=== PATIENT | female | born 1965 | race Caucasian/White ===

== ENCOUNTER 2017-04-10 13:20 | Emergency (ER) | payer OTHER ==
[~2017-04-10] VITALS: Ht 165.1 cm; Wt 70.4 kg
[~2017-04-10 13:20] MED LIST: ANTIVERT25 MG PO; BACTRIM,SEPT1 TABLET PO; BENADRYL25 MG PO; CIPRO500 MG PO; CLARITIN10 MG PO; DIFLUCAN150 MG PO; DOXYCYCLINE HY100 MG PO; FIORICET 50-301 EACH PO; FLAGYL500 MG PO; FLEXERIL10 MG PO; HYDROCODONE CO120 ML PO; KEFLEX500 MG PO; KENALOG,ARISTOC80 GM TP; MACROBID100 MG PO; MECLIZINE HCL25 MG PO; METOPROLOL; MOTRIN800 MG PO; NAPROSYN500 MG PO; NEXIUM40 MG PO; NITROFURANTOIN50 MG PO; NO HOME MEDS; NOHOMEMEDS; NORCO 5/3251 TABLET PO; OXYCODONE H5 MG/5 ML PO; PREDNISONE10 MG PO; PREDNISONE20 MG PO; PROMETHAZINE HC25 M1 PO; PYRIDIUM100 MG PO; PYRIDIUM200 MG PO; TORADOL10 MG PO; TRAMADOL HCL50 MG; TYLENOL WITH C1 EACH PO; ULTRAM50 MG PO; VALIUM5 MG PO; ZITHROMAX250 MG PO; ZOFRAN4 MG PO
[2017-04-10 14:35] LABS: BASOPHIL COUNT 0.1 K/uL (0-0.1); EOSINOPHIL (%) 2.6 % (0-5); EOSINOPHIL COUNT 0.2 K/uL (0-0.3); HEMATOCRIT 38.3 % (36.0-46.0); IMMATURE GRANULOCYTE (%) 0.3 % (0.0-0.7); INSTRUMENT ABS NEUTROPHIL CT 3.5 K/uL; LYMPHOCYTE COUNT 2.1 K/uL (1.0-2.8); MCH 29.5 PG (29.0-34.0); MCHC 33.4 G/DL (30.0-36.0); MCV 88.2 FL (83-99); MEAN PLAT.VOLUME 9.9 uM^3 (9.5-12.4); MONOCYTE (%) 5.8 % (3-12); MONOCYTE COUNT 0.4 K/uL (0-0.8); NEUTROPHIL COUNT 3.5 K/uL (1.8-6.4); PLATELET COUNT 238 K/uL (156-360); RBC DIS.WIDTH-CV 12.9 % (11.8-14.6); RBC DIS.WIDTH-SD 41.7 % (39-53); RED BLOOD COUNT 4.34 M/uL (3.80-5.20); WHITE BLOOD COUNT 6.2 K/uL (4.1-10.2)
[2017-04-10 14:41] LABS: PROTHROMBIN TIME 11.2 SEC (10.2-12.9)
[2017-04-10 14:43] LABS: PTT 22.1 SEC (25-37)
[2017-04-10 14:47] LABS: CHLORIDE 109 mEq/L (99-109); POTASSIUM 3.6 mEq/L (3.7-5.4); SODIUM 144 mEq/L (136-147)
[2017-04-10 14:49] LABS: GLUCOSE 95 mg/dL (70-99)
[2017-04-10 14:50] LABS: ANION GAP 10 MEQ/L (2-14)
[2017-04-10 14:53] LABS: GFR ESTIMATE (CALCULATED) > 59 mL/min/
[2017-04-10 14:54] LABS: UREA NITROGEN (BUN) 8 mg/dL (9-23)
[2017-04-10 16:59] LABS: TROP-I INTERPRETATION NEGATIVE; TROPONIN-I < 0.01 ng/mL (0.0-0.30)
[2017-04-10 18:04] LABS: TROP-I INTERPRETATION NEGATIVE; TROPONIN-I < 0.01 ng/mL (0.0-0.30)
[2017-04-10] MEDS ORDERED: NORCO 5/3251 TABLET PO (18:10)
[2017-04-10 18:29] VITALS: BP 129/75
== END 2017-04-10 18:30 | disposition home or self-care (01) ==
LOC: RME 13:20 → EME 13:20 → RME 18:30
PROVIDERS: Physician Assistant Medical; Thoracic Surgery (Cardiothoracic Vascular Surgery)
PROC: 2W3CX1Z Immobilization of Right Lower Arm using Splint (ICD-10-PCS; principal; 2017-04-10)
DX: S52.601A Unspecified fracture of lower end of right ulna, initial encounter for closed fracture (principal); R55 Syncope and collapse; W18.30XA Fall on same level, unspecified, initial encounter; K21.9 Gastro-esophageal reflux disease without esophagitis; Z87.442 Personal history of urinary calculi
CPT/HCPCS: 71020; 73030; 73080; 73110; 80048; 80048 91; 84484; 85025; 85027; 85049; 85610; 85730; 93005; 99281; 99284; J2270; J3010

== ENCOUNTER 2017-06-18 14:21 | Emergency (ER) | payer OTHER ==
[~2017-06-18] VITALS: Ht 165.1 cm; Wt 72.4 kg
[2017-06-18 15:04] LABS: ADD MIUA? YES; BILIRUBIN NEGATIVE; BLOOD NEGATIVE; COLOR YELLOW ((YELLOW)); GLUCOSE (STRIP) NEGATIVE; KETONES NEGATIVE; LEUKOCYTES SMALL; NITRITE NEGATIVE; PROTEIN (STRIP) NEGATIVE; SPECIFIC GRAVITY 1.028 (1.000-1.030); UROBILINOGEN 0.2 MG/DL (0.2-1.0)
[2017-06-18 15:08] LABS: BACTERIA RARE /HPF; EPITHELIAL CELLS RARE /HPF; HYALINE CASTS 0-5 /LPF; MUCUS 2+ /LPF; RED BLOOD CELLS 0-5 /HPF (0-5); UCUL ADDED? YES
[2017-06-18] MEDS ORDERED: OMNICEF300 MG PO (17:16)
[2017-06-18] MEDS ORDERED: PYRIDIUM200 MG PO (17:16)
[2017-06-18] MEDS ORDERED: MOTRIN600 MG PO (17:16)
[2017-06-18 17:28] VITALS: BP 128/82
[2017-06-21] MEDS ORDERED: NEXIUM40 MG PO (16:40)
== END 2017-06-18 17:28 | disposition home or self-care (01) ==
LOC: EME 14:21
DX: N30.00 Acute cystitis without hematuria (principal); Z87.440 Personal history of urinary (tract) infections; Z87.442 Personal history of urinary calculi; K21.9 Gastro-esophageal reflux disease without esophagitis
CPT/HCPCS: 81003; 87077; 87086; 87186; 99281; 99284

== ENCOUNTER 2017-06-20 14:45 | Emergency (ER) | payer OTHER ==
[~2017-06-20] VITALS: Ht 165.1 cm; Wt 72.9 kg
[~2017-06-20 14:45] MED LIST changes: +MOTRIN600 MG PO; +OMNICEF300 MG PO
[2017-06-20 15:17] LABS: HEMATOCRIT 39.5 % (36.0-46.0); MCH 29.5 PG (29.0-34.0); MCHC 33.4 G/DL (30.0-36.0); MCV 88.2 FL (83-99); MEAN PLAT.VOLUME 9.1 uM^3 (9.5-12.4); PLATELET COUNT 278 K/uL (156-360); RBC DIS.WIDTH-CV 12.7 % (11.8-14.6); RBC DIS.WIDTH-SD 41.1 % (39-53); RED BLOOD COUNT 4.48 M/uL (3.80-5.20); WHITE BLOOD COUNT 5.8 K/uL (4.1-10.2)
[2017-06-20 15:26] LABS: ADD MIUA? YES; BILIRUBIN NEGATIVE; BLOOD SMALL; COLOR YELLOW ((YELLOW)); GLUCOSE (STRIP) NEGATIVE; KETONES NEGATIVE; LEUKOCYTES TRACE; NITRITE NEGATIVE; PROTEIN (STRIP) NEGATIVE; SPECIFIC GRAVITY 1.023 (1.000-1.030); UROBILINOGEN 0.2 MG/DL (0.2-1.0)
[2017-06-20 15:29] LABS: CHLORIDE 110 mEq/L (99-109); POTASSIUM 3.8 mEq/L (3.7-5.4); SODIUM 142 mEq/L (136-147)
[2017-06-20 15:31] LABS: GLUCOSE 101 mg/dL (70-99)
[2017-06-20 15:33] LABS: ANION GAP 7 MEQ/L (2-14); TOTAL BILIRUBIN 0.5 mg/dL (0.0-1.0)
[2017-06-20 15:35] LABS: ALKALINE PHOSPHATASE 107 IU/L (3-129); GFR ESTIMATE (CALCULATED) 55 mL/min/
[2017-06-20 15:36] LABS: UREA NITROGEN (BUN) 12 mg/dL (9-23)
[2017-06-20 15:41] LABS: BACTERIA NONE SEEN /HPF; EPITHELIAL CELLS RARE /HPF; HYALINE CASTS 0-5 /LPF; MUCUS TRACE /LPF; RED BLOOD CELLS 0-5 /HPF (0-5); UCUL ADDED? NO; WHITE BLOOD CELLS 0-5 /HPF (0-5)
[2017-06-20 17:54] VITALS: BP 124/86
[2017-06-21] MEDS ORDERED: NEXIUM40 MG PO (16:40)
== END 2017-06-20 17:57 | disposition home or self-care (01) ==
LOC: EME 14:45
PROVIDERS: Nurse Practitioner Family
DX: N39.0 Urinary tract infection, site not specified (principal); Z87.442 Personal history of urinary calculi; Z87.440 Personal history of urinary (tract) infections
CPT/HCPCS: 80053; 81003; 85027; 99281; 99284; J1335; J2405; J7030; J7050

== ENCOUNTER 2017-08-08 12:21 | Inpatient (IN) | payer OTHER ==
[~2017-08-08] VITALS: Ht 165.1 cm; Wt 73.5 kg
[2017-08-08 14:27] LABS: HEMATOCRIT 38.8 % (36.0-46.0); MCH 30.3 PG (29.0-34.0); MEAN PLAT.VOLUME 9.2 uM^3 (9.5-12.4); PLATELET COUNT 268 K/uL (156-360); RBC DIS.WIDTH-CV 12.6 % (11.8-14.6); RBC DIS.WIDTH-SD 41.5 % (39-53); RED BLOOD COUNT 4.36 M/uL (3.80-5.20); WHITE BLOOD COUNT 6.5 K/uL (4.1-10.2)
[2017-08-08 14:35] LABS: CHLORIDE 110 mEq/L (99-109); POTASSIUM 3.2 mEq/L (3.7-5.4); SODIUM 143 mEq/L (136-147)
[2017-08-08 14:37] LABS: GLUCOSE 100 mg/dL (70-99)
[2017-08-08 14:38] LABS: ANION GAP 8 MEQ/L (2-14)
[2017-08-08 14:39] LABS: ADD MIUA? YES; BILIRUBIN NEGATIVE; BLOOD SMALL; COLOR YELLOW ((YELLOW)); GLUCOSE (STRIP) NEGATIVE; KETONES NEGATIVE; LEUKOCYTES NEGATIVE; NITRITE NEGATIVE; PROTEIN (STRIP) 30; SPECIFIC GRAVITY 1.027 (1.000-1.030); UROBILINOGEN 0.2 MG/DL (0.2-1.0)
[2017-08-08 14:40] LABS: GFR ESTIMATE (CALCULATED) > 59 mL/min/
[2017-08-08 14:41] LABS: UREA NITROGEN (BUN) 9 mg/dL (9-23)
[2017-08-08 14:45] LABS: BACTERIA NONE SEEN /HPF; EPITHELIAL CELLS RARE /HPF; MUCUS 3+ /LPF; WHITE BLOOD CELLS 0-5 /HPF (0-5)
[2017-08-08 14:47] LABS: TROP-I INTERPRETATION NEGATIVE; TROPONIN-I < 0.01 ng/mL (0.0-0.30)
[2017-08-08] MEDS ORDERED: POTASSIUM CHLO10 ME4 PO (17:27)
[2017-08-08 20:23] VITALS: BP 98/55
[2017-08-08 22:37] LABS: TROP-I INTERPRETATION NEGATIVE; TROPONIN-I < 0.01 ng/mL (0.0-0.30)
[2017-08-08 23:05] VITALS: BP 82/52
[2017-08-09] VITALS (8 sets, daily range): BP systolic 94–126; BP diastolic 54–71
[2017-08-09 05:41] LABS: HEMATOCRIT 33.5 % (36.0-46.0); MCH 29.9 PG (29.0-34.0); MCHC 32.5 G/DL (30.0-36.0); MEAN PLAT.VOLUME 9.6 uM^3 (9.5-12.4); PLATELET COUNT 205 K/uL (156-360); RBC DIS.WIDTH-CV 12.9 % (11.8-14.6); RBC DIS.WIDTH-SD 43.5 % (39-53); RED BLOOD COUNT 3.64 M/uL (3.80-5.20); WHITE BLOOD COUNT 4.5 K/uL (4.1-10.2)
[2017-08-09 05:48] LABS: TROP-I INTERPRETATION NEGATIVE; TROPONIN-I < 0.01 ng/mL (0.0-0.30)
[2017-08-09 06:05] LABS: ALKALINE PHOSPHATASE 64 IU/L (3-129); ANION GAP 4 MEQ/L (2-14); CHLORIDE 117 MEQ/L (99-109); GFR ESTIMATE (CALCULATED) > 59 mL/min/; GLUCOSE 98 mg/dL (70-99); SAMPLE HEMOLYSIS CHECK 0; SAMPLE ICTERIC CHECK 0; SAMPLE LIPEMIA CHECK 0; SODIUM 145 MEQ/L (136-147); TOTAL BILIRUBIN 0.4 MG/DL (0.0-1.0); UREA NITROGEN (BUN) 8 mg/dL (9-23)
[2017-08-09 06:18] LABS: POTASSIUM 4.8 MEQ/L (3.7-5.4)
[2017-08-10 09:50] VITALS: BP 112/61
[2017-08-10 12:12] VITALS: BP 104/60
[2017-08-10] MEDS ORDERED: ASPIR-LOW81 MG PO (14:05)
== END 2017-08-10 15:25 | disposition home or self-care (01) | DRG 313 ==
LOC: EME 12:21 → EDOF 18:15 → ENRESERV 18:16 → 5WEST 20:12 → ENPENDDIS 08-10 → 5WEST 08-10 06:50
PROVIDERS: Internal Medicine; Physician Assistant
DX: R07.89 Other chest pain (principal); R55 Syncope and collapse; I95.9 Hypotension, unspecified; R94.31 Abnormal electrocardiogram [ECG] [EKG]; R26.81 Unsteadiness on feet; E87.6 Hypokalemia; K21.9 Gastro-esophageal reflux disease without esophagitis; R42 Dizziness and giddiness; S60.512A Abrasion of left hand, initial encounter; W18.30XA Fall on same level, unspecified, initial encounter; R20.0 Anesthesia of skin; E78.5 Hyperlipidemia, unspecified; E03.9 Hypothyroidism, unspecified; Z87.442 Personal history of urinary calculi; Z82.49 Family history of ischemic heart disease and other diseases of the circulatory system; R29.6 Repeated falls; Z66 Do not resuscitate; R00.1 Bradycardia, unspecified; R51 Headache
CPT/HCPCS: 70450; 70551; 71020; 72156; 73130; 80048; 80053; 81003; 83735; 84484; 85027; 93005; 93880; 99281; 99285; G0378; J2405; J7030

== ENCOUNTER 2017-09-17 19:14 | Emergency (ER) | payer OTHER ==
[~2017-09-17] VITALS: Ht 165.1 cm; Wt 75.1 kg
[~2017-09-17 19:14] MED LIST changes: +ASPIR-LOW81 MG PO; +POTASSIUM CHLO10 ME4 PO
[2017-09-17 19:58] LABS: HEMATOCRIT 39.2 % (36.0-46.0); HEMOGLOBIN 13.2 G/DL (11.9-15.5); MCH 30.1 PG (29.0-34.0); MCHC 33.7 G/DL (30.0-36.0); MCV 89.3 FL (83-99); PLATELET COUNT 279 K/uL (156-360); RBC DIS.WIDTH-CV 12.7 % (11.8-14.6); RBC DIS.WIDTH-SD 41.4 % (39-53); RED BLOOD COUNT 4.39 M/uL (3.80-5.20); WHITE BLOOD COUNT 5.7 K/uL (4.1-10.2)
[2017-09-17 20:06] LABS: APPEARANCE CLEAR ((CLEAR)); BILIRUBIN NEGATIVE; BLOOD MODERATE; COLOR YELLOW ((YELLOW)); GLUCOSE (STRIP) NEGATIVE; KETONES 5; LEUKOCYTES SMALL; NITRITE POSITIVE; PROTEIN (STRIP) NEGATIVE; SPECIFIC GRAVITY 1.033 (1.000-1.030); UROBILINOGEN 0.2 MG/DL (0.2-1.0)
[2017-09-17 20:13] LABS: ALBUMIN 3.8 g/dL (3.2-4.8); CHLORIDE 108 mEq/L (99-109); SODIUM 141 mEq/L (136-147)
[2017-09-17 20:15] LABS: GLUCOSE 114 mg/dL (70-99); TOTAL PROTEIN 6.9 g/dL (6.4-8.3)
[2017-09-17 20:17] LABS: TOTAL BILIRUBIN 0.2 mg/dL (0.0-1.0)
[2017-09-17 20:19] LABS: ALKALINE PHOSPHATASE 98 IU/L (3-129); CREATININE 0.9 mg/dL (0.6-1.3); GFR ESTIMATE (CALCULATED) > 59 mL/min/
[2017-09-17 20:20] LABS: UREA NITROGEN (BUN) 8 mg/dL (9-23)
[2017-09-17 20:21] LABS: AST (GOT) 16 IU/L (2-34)
[2017-09-17 20:22] LABS: ALT (GPT) 15 IU/L (3-49)
[2017-09-17 20:22] LABS: BACTERIA 1+ /HPF; EPITHELIAL CELLS RARE /HPF; HYALINE CASTS 0-5 /LPF; MUCUS 1+ /LPF; RED BLOOD CELLS 0-5 /HPF (0-5); UCUL ADDED? NO; WHITE BLOOD CELLS 0-5 /HPF (0-5)
[2017-09-17 20:32] LABS: QUANTITATIVE HCG 7.9 MIU/ML
[2017-09-17 20:51] LABS: LIPASE 25 U/L (1.0-51.0)
[2017-09-17] MEDS ORDERED: MOTRIN800 MG PO (23:10)
[2017-09-17] MEDS ORDERED: KEFLEX500 MG PO (23:10)
[2017-09-17 23:27] VITALS: BP 106/69
== END 2017-09-18 00:10 | disposition home or self-care (01) ==
LOC: EME 19:14
DX: N39.0 Urinary tract infection, site not specified (principal); K21.9 Gastro-esophageal reflux disease without esophagitis; Z87.442 Personal history of urinary calculi; Z87.891 Personal history of nicotine dependence; Z88.5 Allergy status to narcotic agent; Z88.2 Allergy status to sulfonamides; Z88.8 Allergy status to other drugs, medicaments and biological substances
CPT/HCPCS: 74176; 80053; 81003; 83690; 84702; 85027; 87077; 87086; 87186; 99281; 99284; J0696; J3010

== ENCOUNTER 2017-09-19 20:27 | Emergency (ER) | payer OTHER ==
[~2017-09-19] VITALS: Ht 165.1 cm; Wt 75.4 kg
[2017-09-19 21:53] LABS: HEMATOCRIT 37.3 % (36.0-46.0); HEMOGLOBIN 12.6 G/DL (11.9-15.5); MCH 29.9 PG (29.0-34.0); MCHC 33.8 G/DL (30.0-36.0); MCV 88.4 FL (83-99); PLATELET COUNT 253 K/uL (156-360); RBC DIS.WIDTH-CV 12.5 % (11.8-14.6); RBC DIS.WIDTH-SD 40.4 % (39-53); RED BLOOD COUNT 4.22 M/uL (3.80-5.20); WHITE BLOOD COUNT 5.4 K/uL (4.1-10.2)
[2017-09-19 22:05] LABS: ALBUMIN 3.7 g/dL (3.2-4.8)
[2017-09-19 22:06] LABS: CHLORIDE 107 mEq/L (99-109); POTASSIUM 3.9 mEq/L (3.7-5.4); SODIUM 141 mEq/L (136-147)
[2017-09-19 22:08] LABS: GLUCOSE 113 mg/dL (70-99); TOTAL PROTEIN 6.7 g/dL (6.4-8.3)
[2017-09-19 22:11] LABS: ALKALINE PHOSPHATASE 92 IU/L (3-129)
[2017-09-19 22:12] LABS: CREATININE 0.9 mg/dL (0.6-1.3); GFR ESTIMATE (CALCULATED) > 59 mL/min/; TOTAL BILIRUBIN 0.3 mg/dL (0.0-1.0)
[2017-09-19 22:13] LABS: UREA NITROGEN (BUN) 11 mg/dL (9-23)
[2017-09-19 22:15] LABS: ALT (GPT) 22 IU/L (3-49)
[2017-09-19 22:18] LABS: AST (GOT) 31 IU/L (2-34)
[2017-09-20 00:50] VITALS: BP 152/70
== END 2017-09-20 00:51 | disposition home or self-care (01) ==
LOC: EME 20:27
PROVIDERS: Emergency Medicine
DX: N39.0 Urinary tract infection, site not specified (principal); Z16.12 Extended spectrum beta lactamase (ESBL) resistance; K21.9 Gastro-esophageal reflux disease without esophagitis; Z87.440 Personal history of urinary (tract) infections; Z87.442 Personal history of urinary calculi; Z88.2 Allergy status to sulfonamides; Z88.5 Allergy status to narcotic agent
CPT/HCPCS: 80053; 85027; 99281; 99284; J1335; J7050

== ENCOUNTER 2017-10-14 17:25 | Emergency (ER) | payer OTHER ==
[~2017-10-14] VITALS: Ht 165.1 cm; Wt 70.9 kg
[2017-10-14 18:12] LABS: APPEARANCE CLEAR ((CLEAR)); BILIRUBIN NEGATIVE; BLOOD MODERATE; COLOR YELLOW ((YELLOW)); GLUCOSE (STRIP) NEGATIVE; KETONES NEGATIVE; LEUKOCYTES SMALL; NITRITE NEGATIVE; PROTEIN (STRIP) 30; SPECIFIC GRAVITY 1.025 (1.000-1.030); UROBILINOGEN 0.2 MG/DL (0.2-1.0)
[2017-10-14 18:14] LABS: HEMATOCRIT 41.2 % (36.0-46.0); HEMOGLOBIN 14.1 G/DL (11.9-15.5); MCH 30.2 PG (29.0-34.0); MCHC 34.2 G/DL (30.0-36.0); MCV 88.2 FL (83-99); PLATELET COUNT 220 K/uL (156-360); RBC DIS.WIDTH-CV 12.7 % (11.8-14.6); RBC DIS.WIDTH-SD 41.1 % (39-53); RED BLOOD COUNT 4.67 M/uL (3.80-5.20); WHITE BLOOD COUNT 4.9 K/uL (4.1-10.2)
[2017-10-14 18:30] LABS: BACTERIA RARE /HPF; CALCIUM OXALATE CRYSTALS 2+ /HPF; EPITHELIAL CELLS RARE /HPF; MUCUS 1+ /LPF; RED BLOOD CELLS 0-5 /HPF (0-5); UCUL ADDED? NO; WHITE BLOOD CELLS 0-5 /HPF (0-5)
[2017-10-14 19:18] LABS: ALBUMIN 4.2 g/dL (3.2-4.8)
[2017-10-14 19:19] LABS: CHLORIDE 105 mEq/L (99-109); POTASSIUM 3.9 mEq/L (3.7-5.4); SODIUM 141 mEq/L (136-147)
[2017-10-14 19:21] LABS: GLUCOSE 99 mg/dL (70-99); TOTAL PROTEIN 7.3 g/dL (6.4-8.3)
[2017-10-14 19:23] LABS: TOTAL BILIRUBIN 0.5 mg/dL (0.0-1.0)
[2017-10-14 19:24] LABS: ALKALINE PHOSPHATASE 91 IU/L (3-129)
[2017-10-14 19:25] LABS: CREATININE 0.9 mg/dL (0.6-1.3); GFR ESTIMATE (CALCULATED) > 59 mL/min/
[2017-10-14 19:26] LABS: AST (GOT) 23 IU/L (2-34); UREA NITROGEN (BUN) 9 mg/dL (9-23)
[2017-10-14 19:28] LABS: ALT (GPT) 21 IU/L (3-49)
[2017-10-14] MEDS ORDERED: ULTRAM50 MG PO (22:47)
[2017-10-14 22:54] VITALS: BP 113/72
== END 2017-10-14 23:05 | disposition home or self-care (01) ==
LOC: EME 17:25 → EXP 17:25
DX: D25.9 Leiomyoma of uterus, unspecified (principal); M54.5 Low back pain; E78.00 Pure hypercholesterolemia, unspecified; Z87.442 Personal history of urinary calculi; Z87.440 Personal history of urinary (tract) infections; Z88.5 Allergy status to narcotic agent; Z88.2 Allergy status to sulfonamides
CPT/HCPCS: 76770; 76856; 80053; 81003; 84702; 85027; 99281; 99285; J2270

== ENCOUNTER 2017-10-16 11:40 | Emergency (ER) | payer OTHER ==
[~2017-10-16] VITALS: Ht 165.1 cm; Wt 70.4 kg
[2017-10-16 12:36] LABS: HEMATOCRIT 40.8 % (36.0-46.0); HEMOGLOBIN 13.6 G/DL (11.9-15.5); MCH 29.6 PG (29.0-34.0); MCHC 33.3 G/DL (30.0-36.0); MCV 88.9 FL (83-99); PLATELET COUNT 243 K/uL (156-360); RBC DIS.WIDTH-CV 12.7 % (11.8-14.6); RBC DIS.WIDTH-SD 41.2 % (39-53); RED BLOOD COUNT 4.59 M/uL (3.80-5.20); WHITE BLOOD COUNT 4.5 K/uL (4.1-10.2)
[2017-10-16 12:45] LABS: CHLORIDE 104 mEq/L (99-109); POTASSIUM 3.8 mEq/L (3.7-5.4); SODIUM 141 mEq/L (136-147)
[2017-10-16 12:47] LABS: GLUCOSE 83 mg/dL (70-99)
[2017-10-16 12:51] LABS: CREATININE 0.9 mg/dL (0.6-1.3); GFR ESTIMATE (CALCULATED) > 59 mL/min/
[2017-10-16 12:52] LABS: UREA NITROGEN (BUN) 16 mg/dL (9-23)
[2017-10-16 13:02] LABS: APPEARANCE SL.HAZY ((CLEAR)); BILIRUBIN NEGATIVE; BLOOD SMALL; COLOR AMBER ((YELLOW)); GLUCOSE (STRIP) NEGATIVE; KETONES NEGATIVE; LEUKOCYTES LARGE; NITRITE NEGATIVE; PROTEIN (STRIP) 30; UROBILINOGEN 0.2 MG/DL (0.2-1.0)
[2017-10-16 13:19] LABS: BACTERIA RARE /HPF; CALCIUM OXALATE CRYSTALS 4+ /HPF; EPITHELIAL CELLS RARE /HPF; HYALINE CASTS 0-5 /LPF; MUCUS 3+ /LPF; UCUL ADDED? YES; WHITE BLOOD CELLS 30-40 /HPF (0-5)
[2017-10-16] MEDS ORDERED: POTASSIUM CHLO10 ME4 PO (13:59)
[2017-10-16] MEDS ORDERED: NORTRIPTYLINE H10 MG PO (13:59)
[2017-10-16] MEDS ORDERED: TOPIRAMATE25 MG PO (13:59)
[2017-10-16 14:44] LABS: ALBUMIN 4.1 g/dL (3.2-4.8)
[2017-10-16 14:47] LABS: TOTAL PROTEIN 7.4 g/dL (6.4-8.3)
[2017-10-16 14:49] LABS: TOTAL BILIRUBIN 0.5 mg/dL (0.0-1.0)
[2017-10-16 14:50] LABS: ALKALINE PHOSPHATASE 90 IU/L (3-129)
[2017-10-16 14:53] LABS: ALT (GPT) 20 IU/L (3-49); AST (GOT) 22 IU/L (2-34); DIRECT BILIRUBIN 0.2 mg/dL (0.0-0.3)
[2017-10-16 14:54] LABS: LIPASE 18 U/L (1.0-51.0)
[2017-10-16] MEDS ORDERED: KEFLEX500 MG PO (17:00)
[2017-10-16] MEDS ORDERED: ZOFRAN ODT4 MG PO (17:00)
[2017-10-16] MEDS ORDERED: PHENERGAN12.5 MG PR (17:00)
[2017-10-16 18:25] VITALS: BP 103/71
== END 2017-10-16 18:28 | disposition home or self-care (01) ==
LOC: EME 11:40
DX: N10 Acute pyelonephritis (principal); K21.9 Gastro-esophageal reflux disease without esophagitis; Z87.440 Personal history of urinary (tract) infections; Z87.442 Personal history of urinary calculi; Z88.5 Allergy status to narcotic agent; Z88.2 Allergy status to sulfonamides
CPT/HCPCS: 74176; 80048; 80076; 81003; 83690; 85027; 87077; 87086; 87186; 99281; 99285; J0696; J1885; J2405; J7030

== ENCOUNTER 2017-11-06 10:40 | Emergency (ER) | payer OTHER ==
[~2017-11-06] VITALS: Ht 165.1 cm; Wt 72.7 kg
[~2017-11-06 10:40] MED LIST changes: +NORTRIPTYLINE H10 MG PO; +PHENERGAN12.5 MG PR; +TOPIRAMATE25 MG PO; +ZOFRAN ODT4 MG PO
[2017-11-06 11:33] LABS: APPEARANCE CLEAR ((CLEAR)); BILIRUBIN NEGATIVE; BLOOD SMALL; COLOR YELLOW ((YELLOW)); GLUCOSE (STRIP) NEGATIVE; KETONES NEGATIVE; LEUKOCYTES NEGATIVE; NITRITE NEGATIVE; PROTEIN (STRIP) NEGATIVE; SPECIFIC GRAVITY 1.023 (1.000-1.030); UROBILINOGEN 0.2 MG/DL (0.2-1.0)
[2017-11-06 11:39] LABS: BACTERIA RARE /HPF; EPITHELIAL CELLS RARE /HPF; MUCUS 1+ /LPF; WHITE BLOOD CELLS 0-5 /HPF (0-5)
[2017-11-06 12:39] LABS: HEMATOCRIT 35.8 % (36.0-46.0); HEMOGLOBIN 12.1 G/DL (11.9-15.5); MCH 30.1 PG (29.0-34.0); MCHC 33.8 G/DL (30.0-36.0); MCV 89.1 FL (83-99); PLATELET COUNT 249 K/uL (156-360); RBC DIS.WIDTH-CV 12.9 % (11.8-14.6); RBC DIS.WIDTH-SD 42.4 % (39-53); RED BLOOD COUNT 4.02 M/uL (3.80-5.20); WHITE BLOOD COUNT 4.9 K/uL (4.1-10.2)
[2017-11-06 12:48] LABS: CHLORIDE 109 mEq/L (99-109); POTASSIUM 3.5 mEq/L (3.7-5.4); SODIUM 143 mEq/L (136-147)
[2017-11-06 12:49] LABS: GLUCOSE 105 mg/dL (70-99)
[2017-11-06 12:53] LABS: CREATININE 0.8 mg/dL (0.6-1.3); GFR ESTIMATE (CALCULATED) > 59 mL/min/
[2017-11-06 12:54] LABS: UREA NITROGEN (BUN) 6 mg/dL (9-23)
[2017-11-06 13:02] LABS: QUANTITATIVE HCG 5.8 MIU/ML
[2017-11-06] MEDS ORDERED: FLEXERIL10 MG PO (13:25)
[2017-11-06] MEDS ORDERED: LIDODERM 5% P1 PATCH TD (13:25)
[2017-11-06 13:49] VITALS: BP 111/72
== END 2017-11-06 14:09 | disposition home or self-care (01) ==
LOC: EME 10:40
PROVIDERS: Nurse Practitioner Family
DX: R10.9 Unspecified abdominal pain (principal); R31.9 Hematuria, unspecified; K21.9 Gastro-esophageal reflux disease without esophagitis; G43.909 Migraine, unspecified, not intractable, without status migrainosus; Z87.448 Personal history of other diseases of urinary system; Z88.5 Allergy status to narcotic agent; Z88.2 Allergy status to sulfonamides; Z88.8 Allergy status to other drugs, medicaments and biological substances
CPT/HCPCS: 74176; 80048; 81003; 84702; 85027; 99281; 99284

== ENCOUNTER 2017-11-20 14:22 | Emergency (ER) | payer OTHER ==
[~2017-11-20] VITALS: Ht 165.1 cm; Wt 70.3 kg
[~2017-11-20 14:22] MED LIST changes: +LIDODERM 5% P1 PATCH TD
[2017-11-20 14:46] LABS: APPEARANCE SL.HAZY ((CLEAR)); BILIRUBIN NEGATIVE; BLOOD SMALL; COLOR YELLOW ((YELLOW)); GLUCOSE (STRIP) NEGATIVE; KETONES NEGATIVE; LEUKOCYTES NEGATIVE; NITRITE NEGATIVE; PROTEIN (STRIP) 30; SPECIFIC GRAVITY 1.036 (1.000-1.030); UROBILINOGEN 0.2 MG/DL (0.2-1.0)
[2017-11-20 14:55] LABS: BACTERIA RARE /HPF; EPITHELIAL CELLS RARE /HPF; MUCUS 4+ /LPF; RED BLOOD CELLS 0-5 /HPF (0-5); WHITE BLOOD CELLS 0-5 /HPF (0-5)
[2017-11-20 18:20] VITALS: BP 105/66
== END 2017-11-20 18:22 | disposition home or self-care (01) ==
LOC: EME 14:22
DX: R30.0 Dysuria (principal); J20.9 Acute bronchitis, unspecified; K21.9 Gastro-esophageal reflux disease without esophagitis; Z87.442 Personal history of urinary calculi; Z87.440 Personal history of urinary (tract) infections; Z88.5 Allergy status to narcotic agent; Z88.2 Allergy status to sulfonamides; Z88.1 Allergy status to other antibiotic agents; Z88.0 Allergy status to penicillin
CPT/HCPCS: 71046; 81003; 87086; 94640; 94640 76; 94644; 99281; 99284

== ENCOUNTER 2017-12-05 10:25 | Emergency (ER) | payer OTHER ==
[~2017-12-05] VITALS: Ht 165.1 cm; Wt 70.0 kg
[2017-12-05 11:11] LABS: HEMATOCRIT 35.1 % (36.0-46.0); HEMOGLOBIN 11.9 G/DL (11.9-15.5); MCH 29.8 PG (29.0-34.0); MCHC 33.9 G/DL (30.0-36.0); MCV 87.8 FL (83-99); PLATELET COUNT 273 K/uL (156-360); RBC DIS.WIDTH-CV 13.1 % (11.8-14.6); RBC DIS.WIDTH-SD 41.7 % (39-53); WHITE BLOOD COUNT 5.2 K/uL (4.1-10.2)
[2017-12-05 11:19] LABS: APPEARANCE SL.HAZY ((CLEAR)); BILIRUBIN NEGATIVE; BLOOD SMALL; COLOR AMBER ((YELLOW)); GLUCOSE (STRIP) NEGATIVE; KETONES NEGATIVE; LEUKOCYTES LARGE; NITRITE NEGATIVE; PROTEIN (STRIP) 100; SPECIFIC GRAVITY 1.035 (1.000-1.030); UROBILINOGEN 0.2 MG/DL (0.2-1.0)
[2017-12-05 11:21] LABS: CHLORIDE 110 mEq/L (99-109); POTASSIUM 3.4 mEq/L (3.7-5.4); SODIUM 145 mEq/L (136-147)
[2017-12-05 11:23] LABS: GLUCOSE 101 mg/dL (70-99)
[2017-12-05 11:25] LABS: BACTERIA RARE /HPF; CALCIUM OXALATE CRYSTALS 2+ /HPF; EPITHELIAL CELLS RARE /HPF; HYALINE CASTS 0-5 /LPF; MUCUS TRACE /LPF; RED BLOOD CELLS 20-30 /HPF (0-5); WHITE BLOOD CELLS TNTC /HPF (0-5)
[2017-12-05 11:26] LABS: CREATININE 0.8 mg/dL (0.6-1.3); GFR ESTIMATE (CALCULATED) > 59 mL/min/
[2017-12-05 11:27] LABS: UREA NITROGEN (BUN) 9 mg/dL (9-23)
[2017-12-05 12:26] VITALS: BP 132/69
== END 2017-12-05 12:27 | disposition home or self-care (01) ==
LOC: EME 10:25
PROVIDERS: Nurse Practitioner Family
DX: N39.0 Urinary tract infection, site not specified (principal); K21.9 Gastro-esophageal reflux disease without esophagitis; M32.9 Systemic lupus erythematosus, unspecified; G43.909 Migraine, unspecified, not intractable, without status migrainosus; Z87.440 Personal history of urinary (tract) infections; Z87.442 Personal history of urinary calculi; Z88.5 Allergy status to narcotic agent; Z88.2 Allergy status to sulfonamides; Z88.1 Allergy status to other antibiotic agents
CPT/HCPCS: 80048; 81003; 85027; 99281; 99282; J0696

== ENCOUNTER 2018-01-16 19:32 | Emergency (ER) | payer OTHER ==
[~2018-01-16] VITALS: Ht 165.1 cm; Wt 69.4 kg
[2018-01-16 20:08] LABS: BASOPHIL (%) 0.7 % (0-1); EOSINOPHIL COUNT 0.2 K/uL (0-0.3); HEMATOCRIT 39.1 % (36.0-46.0); LYMPHOCYTE (%) 39.9 % (15-42); LYMPHOCYTE COUNT 2.3 K/uL (1.0-2.8); MCHC 33.2 G/DL (30.0-36.0); MCV 90.1 FL (83-99); MONOCYTE (%) 6.7 % (3-12); MONOCYTE COUNT 0.4 K/uL (0-0.8); NEUTROPHIL (%) 49.7 % (45-76); NEUTROPHIL COUNT 2.8 K/uL (1.8-6.4); PLATELET COUNT 246 K/uL (156-360); RBC DIS.WIDTH-SD 43.1 % (39-53); RED BLOOD COUNT 4.34 M/uL (3.80-5.20); WHITE BLOOD COUNT 5.7 K/uL (4.1-10.2)
[2018-01-16 20:16] LABS: APPEARANCE CLOUDY ((CLEAR)); BILIRUBIN NEGATIVE; BLOOD NEGATIVE; COLOR YELLOW ((YELLOW)); GLUCOSE (STRIP) NEGATIVE; KETONES NEGATIVE; LEUKOCYTES TRACE; NITRITE NEGATIVE; PROTEIN (STRIP) 30; SPECIFIC GRAVITY 1.028 (1.000-1.030); UROBILINOGEN 0.2 MG/DL (0.2-1.0)
[2018-01-16 20:39] LABS: EPITHELIAL CELLS 1+ /HPF; RED BLOOD CELLS NONE SEEN /HPF (0-5)
[2018-01-16 20:40] LABS: AMORPHOUS PHOSPHATE CRYSTALS 2+; BACTERIA 1+ /HPF; MUCUS NONE SEEN /LPF; UCUL ADDED? YES
[2018-01-16 20:42] LABS: CHLORIDE 108 MEQ/L (99-109); CREATININE 0.7 MG/DL (0.6-1.3); GFR ESTIMATE (CALCULATED) > 59 mL/min/; GLUCOSE 91 mg/dL (70-99); PHOSPHORUS 3.5 mg/dL (2.5-4.9); POTASSIUM 3.6 MEQ/L (3.7-5.4); SODIUM 143 MEQ/L (136-147); UREA NITROGEN (BUN) 11 mg/dL (9-23)
[2018-01-17 01:29] VITALS: BP 100/64
== END 2018-01-17 01:29 | disposition home or self-care (01) ==
LOC: EME 19:32
PROVIDERS: Emergency Medicine
DX: N39.0 Urinary tract infection, site not specified (principal); R20.2 Paresthesia of skin; N30.10 Interstitial cystitis (chronic) without hematuria; K21.9 Gastro-esophageal reflux disease without esophagitis; M32.9 Systemic lupus erythematosus, unspecified; G43.909 Migraine, unspecified, not intractable, without status migrainosus; Z87.440 Personal history of urinary (tract) infections; Z87.442 Personal history of urinary calculi; Z88.5 Allergy status to narcotic agent; Z88.2 Allergy status to sulfonamides; Z88.8 Allergy status to other drugs, medicaments and biological substances
CPT/HCPCS: 70450; 74177; 80048; 80053; 81003; 83735; 84100; 84702; 85025; 85027; 87086; 93005; 99281; 99285; J0696; J7040; J7120

== ENCOUNTER 2018-02-15 18:50 | Emergency (ER) | payer OTHER ==
[~2018-02-15] VITALS: Ht 165.1 cm; Wt 68.7 kg
[2018-02-15 19:37] LABS: BASOPHIL (%) 0.9 % (0-1); BASOPHIL COUNT 0.1 K/uL (0-0.1); EOSINOPHIL (%) 3.2 % (0-5); EOSINOPHIL COUNT 0.2 K/uL (0-0.3); HEMATOCRIT 36.9 % (36.0-46.0); HEMOGLOBIN 12.7 G/DL (11.9-15.5); IMMATURE GRANULOCYTE (%) 0.2 % (0.0-0.7); LYMPHOCYTE (%) 44.1 % (15-42); LYMPHOCYTE COUNT 2.5 K/uL (1.0-2.8); MCHC 34.4 G/DL (30.0-36.0); MONOCYTE (%) 7.1 % (3-12); MONOCYTE COUNT 0.4 K/uL (0-0.8); NEUTROPHIL (%) 44.5 % (45-76); NEUTROPHIL COUNT 2.5 K/uL (1.8-6.4); PLATELET COUNT 232 K/uL (156-360); RBC DIS.WIDTH-CV 13.2 % (11.8-14.6); RBC DIS.WIDTH-SD 41.5 % (39-53); RED BLOOD COUNT 4.24 M/uL (3.80-5.20); WHITE BLOOD COUNT 5.7 K/uL (4.1-10.2)
[2018-02-15 19:49] LABS: ALBUMIN 3.8 g/dL (3.2-4.8)
[2018-02-15 19:50] LABS: CHLORIDE 110 mEq/L (99-109); POTASSIUM 3.4 mEq/L (3.7-5.4); SODIUM 146 mEq/L (136-147)
[2018-02-15 19:52] LABS: GLUCOSE 95 mg/dL (70-99); TOTAL PROTEIN 6.7 g/dL (6.4-8.3)
[2018-02-15 19:54] LABS: TOTAL BILIRUBIN 0.3 mg/dL (0.0-1.0)
[2018-02-15 19:55] LABS: ALKALINE PHOSPHATASE 92 IU/L (3-129)
[2018-02-15 19:56] LABS: CREATININE 0.9 mg/dL (0.6-1.3); GFR ESTIMATE (CALCULATED) > 59 mL/min/
[2018-02-15 19:57] LABS: AST (GOT) 15 IU/L (2-34); UREA NITROGEN (BUN) 9 mg/dL (9-23)
[2018-02-15 19:59] LABS: ALT (GPT) 13 IU/L (3-49); LIPASE 28 U/L (1.0-51.0)
[2018-02-15 20:05] LABS: QUANTITATIVE HCG 6.6 MIU/ML
[2018-02-15 20:16] LABS: APPEARANCE SL.HAZY ((CLEAR)); BILIRUBIN NEGATIVE; BLOOD SMALL; GLUCOSE (STRIP) NEGATIVE; KETONES NEGATIVE; LEUKOCYTES NEGATIVE; NITRITE NEGATIVE; PROTEIN (STRIP) 30; SPECIFIC GRAVITY 1.033 (1.000-1.030); UROBILINOGEN 0.2 MG/DL (0.2-1.0)
[2018-02-15 20:37] LABS: EPITHELIAL CELLS 1+ /HPF; MUCUS 1+ /LPF; RED BLOOD CELLS 0-5 /HPF (0-5); WHITE BLOOD CELLS 0-5 /HPF (0-5)
[2018-02-15 20:38] LABS: BACTERIA 1+ /HPF
[2018-02-15 21:03] LABS: COLOR YELLOW ((YELLOW))
[2018-02-15] MEDS ORDERED: VALIUM5 MG PO (21:59)
[2018-02-15] MEDS ORDERED: PREDNISONE10 MG PO (22:00)
[2018-02-15] MEDS ORDERED: DIAZEPAM5 MG PO (22:14)
[2018-02-15] MEDS ORDERED: MEDROL DOSEPAK4 MG PO (22:14)
[2018-02-15 22:24] VITALS: BP 136/70
== END 2018-02-15 22:26 | disposition home or self-care (01) ==
LOC: EME 18:50
PROVIDERS: Physician Assistant
DX: M54.5 Low back pain (principal); R10.9 Unspecified abdominal pain; Z87.442 Personal history of urinary calculi; Z87.440 Personal history of urinary (tract) infections; K21.9 Gastro-esophageal reflux disease without esophagitis; M32.9 Systemic lupus erythematosus, unspecified; Z88.5 Allergy status to narcotic agent; Z88.2 Allergy status to sulfonamides
CPT/HCPCS: 74176; 80053; 81003; 83690; 84702; 85025; 99281; 99284; J1885

== ENCOUNTER 2018-04-22 17:12 | Emergency (ER) | payer OTHER ==
[~2018-04-22] VITALS: Ht 162.6 cm; Wt 68.9 kg
[~2018-04-22 17:12] MED LIST changes: +DIAZEPAM5 MG PO; +MEDROL DOSEPAK4 MG PO
[2018-04-22 17:41] LABS: APPEARANCE CLEAR ((CLEAR)); BILIRUBIN NEGATIVE; BLOOD MODERATE; COLOR YELLOW ((YELLOW)); GLUCOSE (STRIP) NEGATIVE; KETONES NEGATIVE; LEUKOCYTES MODERATE; NITRITE NEGATIVE; PROTEIN (STRIP) NEGATIVE; SPECIFIC GRAVITY 1.018 (1.000-1.030); UROBILINOGEN 0.2 MG/DL (0.2-1.0)
[2018-04-22 17:42] LABS: HEMATOCRIT 39.6 % (36.0-46.0); HEMOGLOBIN 13.5 G/DL (11.9-15.5); MCHC 34.1 G/DL (30.0-36.0); PLATELET COUNT 240 K/uL (156-360); RBC DIS.WIDTH-CV 13.2 % (11.8-14.6); RBC DIS.WIDTH-SD 42.5 % (39-53); WHITE BLOOD COUNT 6.4 K/uL (4.1-10.2)
[2018-04-22 17:43] LABS: BACTERIA NONE SEEN /HPF; EPITHELIAL CELLS RARE /HPF; MUCUS TRACE /LPF; RED BLOOD CELLS 0-5 /HPF (0-5); UCUL ADDED? NO; WHITE BLOOD CELLS 0-5 /HPF (0-5)
[2018-04-22 17:50] LABS: CHLORIDE 105 mEq/L (99-109); POTASSIUM 3.9 mEq/L (3.7-5.4); SODIUM 141 mEq/L (136-147)
[2018-04-22 17:52] LABS: GLUCOSE 99 mg/dL (70-99)
[2018-04-22 17:56] LABS: CREATININE 0.9 mg/dL (0.6-1.3); GFR ESTIMATE (CALCULATED) > 59 mL/min/
[2018-04-22 17:57] LABS: UREA NITROGEN (BUN) 10 mg/dL (9-23)
[2018-04-22 18:07] LABS: QUANTITATIVE HCG 6.4 MIU/ML
[2018-04-22] MEDS ORDERED: PYRIDIUM200 MG PO (19:22)
[2018-04-22 19:47] VITALS: BP 133/82
== END 2018-04-22 19:50 | disposition home or self-care (01) ==
LOC: EME 17:12
DX: R35.0 Frequency of micturition (principal); Z87.440 Personal history of urinary (tract) infections; Z87.442 Personal history of urinary calculi; K21.9 Gastro-esophageal reflux disease without esophagitis; M32.9 Systemic lupus erythematosus, unspecified; Z88.1 Allergy status to other antibiotic agents; Z88.2 Allergy status to sulfonamides; Z88.5 Allergy status to narcotic agent
CPT/HCPCS: 80048; 81003; 84702; 85027; 99281; 99284